=== PATIENT | male | born 1975 | race African-American/Black ===

== ENCOUNTER 2020-06-21 12:03 | Emergency (ER) | payer OTHER ==
[~2020-06-21] VITALS: Ht 185.4 cm; Wt 80.7 kg
[2020-06-21 12:12] VITALS: BP 143/92
[2020-06-21] MEDS ORDERED: PREDNISONE 20 M20 MG PO (13:55)
[2020-06-21] MEDS ORDERED: PROMETH-CODEIN 65 ML PO (13:55)
[2020-06-21] MEDS ORDERED: DOXYCYCLINE 10100 MG PO (13:55)
== END 2020-06-21 15:03 | disposition home or self-care (01) ==
LOC: ER 12:03
DX: J18.9 Pneumonia, unspecified organism (principal); J45.909 Unspecified asthma, uncomplicated; F17.210 Nicotine dependence, cigarettes, uncomplicated; Z20.828 Contact with and (suspected) exposure to other viral communicable diseases

== ENCOUNTER 2020-12-04 19:50 | Emergency (ER) | payer OTHER ==
[~2020-12-04] VITALS: Ht 185.4 cm; Wt 80.7 kg
[~2020-12-04 19:50] MED LIST: DOXYCYCLINE 10100 MG PO; PREDNISONE 20 M20 MG PO; PROMETH-CODEIN 65 ML PO
[2020-12-04] MEDS ORDERED: SEROQUEL 100 M100 M1 PO (20:04)
[2020-12-04] MEDS ORDERED: PROMETHAZINE-C473 ML PO (20:04)
[2020-12-04] MEDS ORDERED: PROAIR HFA8.5 GM INH ×2 (20:05→21:44)
[2020-12-04] MEDS ORDERED: ALBUTEROL2.5 MG/0.5 INH (20:05)
[2020-12-04 20:52] LABS: ABSOLUTE NEUTROPHILS 4.2 thou/uL (1.4-8.2); BASOPHILS 0.8 % (0.0-2.0); EOSINOPHILS 2.3 % (0.0-3.0); HEMOGLOBIN 13.3 gm/dL (14.0-18.0); LYMPHOCYTES 24.6 % (24.0-44.0); MCH 29.7 pg (26.0-34.0); MCHC 32.5 g/dL (28.0-37.0); MCV 91.5 fL (80.0-100.0); MONOCYTES 6.4 % (1.0-8.0); PLATELET COUNT 181 thou/uL (150-400); POLYS 65.9 % (36.0-66.0); RBC 4.48 mil/uL (4.50-6.00); WBC 6.4 thou/uL (4.0-11.0)
[2020-12-04 21:03] LABS: ANION GAP 10 mmol/L (7-16); BUN 11 mg/dL (7-18); CALCIUM 9.1 mg/dL (8.5-10.1); CHLORIDE 105 mmol/L (98-107); CO2 27 mmol/L (21-32); CREATININE 1.4 mg/dL (0.7-1.3); GLUCOSE 110 mg/dL (74-106); POTASSIUM 3.8 mmol/L (3.5-5.1); SODIUM 142 mmol/L (136-145)
[2020-12-04 21:12] LABS: TROPONIN-I <0.06 ng/mL (<0.06)
[2020-12-05 06:39] VITALS: BP 158/78
--- NOTE | 2020-12-05 07:36 | EKG ---
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 : 1975 Requested By: Rubén Schneider Order Number: [id number] MD: Evlin Barbour Measurements Intervals [place] Rate: 95 P: 61 [place]: 132 QRS: 22 QRSD: 92 T: 54 QT: 362 QTc: 455 Interpretive Statements Sinus rhythm Left ventricular hypertrophy Baseline wander in lead(s) I No previous ECG available for comparison Electronically Signed On 12-05-2020 7:35:50 PROCESS CONTROL TECH by Elvin Barbour [email or web address] <ELECTRONICALLY SIGNED> By: Elvin Barbour MD, [facility] 12/05/20 0735 05 05 Elvin Barbour MD, FACC /EPI
== END 2020-12-04 22:30 | disposition home or self-care (01) ==
LOC: ER 19:50
PROVIDERS: Nurse Practitioner
DX: R07.89 Other chest pain (principal); R06.00 Dyspnea, unspecified; R05 Cough; R51.9 Headache, unspecified; J45.909 Unspecified asthma, uncomplicated; F31.9 Bipolar disorder, unspecified; F41.9 Anxiety disorder, unspecified; F17.210 Nicotine dependence, cigarettes, uncomplicated; Z79.899 Other long term (current) drug therapy

== ENCOUNTER 2020-12-07 13:10 | Emergency (ER) | payer OTHER ==
[~2020-12-07] VITALS: Ht 185.4 cm; Wt 80.7 kg
[~2020-12-07 13:10] MED LIST changes: +ALBUTEROL2.5 MG/0.5 INH; +PROAIR HFA8.5 GM INH; +PROMETHAZINE-C473 ML PO; +SEROQUEL 100 M100 M1 PO
[2020-12-07] MEDS ORDERED: PREDNISONE 20 M20 M1 PO (14:32)
[2020-12-07] MEDS ORDERED: PROAIR HFA8.5 GM INH (14:32)
[2020-12-07] MEDS ORDERED: PROMETHAZINE-D473 M1 PO (14:32)
[2020-12-07] MEDS ORDERED: AUGMENTIN 875-1 EACH PO (14:33)
[2020-12-07 15:14] VITALS: BP 143/98
== END 2020-12-07 15:10 | disposition home or self-care (01) ==
LOC: ER 13:10
DX: K04.7 Periapical abscess without sinus (principal); R22.0 Localized swelling, mass and lump, head; J45.909 Unspecified asthma, uncomplicated; F17.210 Nicotine dependence, cigarettes, uncomplicated; Z79.899 Other long term (current) drug therapy